=== PATIENT | male | born 1980 | race Caucasian/White ===

== ENCOUNTER 2017-03-21 10:47 | Outpatient (CLI) | payer OTHER ==
--- OUTSIDE RECORDS SUMMARY | 2017-03-21 10:51 | XMS | Clinical Summary ---
:1980 Author Organization [facility] Address [address] [place] [address] Phone Care Team Providers Name Role Phone , Primary Care Provider Unavailable Allergies Active Allergy Reactions Severity Noted Date Comments Amoxicillin Hives Low 09/18/2016 Penicillins Hives Low 09/18/2016 Current Medications Prescription Sig. Disp. Refills Start Date End Date Status prazosin (MINIPRESS) 5 Take 5 mg by Active MG capsule mouth nightly. omeprazole (PRILOSEC) Take 40 mg by Active 40 MG capsule mouth daily. HYDROcodone-acetaminop Take 1 tablet 12/25/2016 Active hen (NORCO 10-325) by mouth every 10-325 mg per tablet 4 (four) hours. cyclobenzaprine Take 10 mg by Active (FLEXERIL) 10 MG mouth 6 (six) tablet times daily. pregabalin (LYRICA) 75 Take 1 capsule 30 capsule 0 02/05/2017 02/05/2018 Active MG capsule (75 mg total) by mouth daily. Max Daily Amount: 75 mg ondansetron (ZOFRAN, Take 1 tablet 30 tablet 1 02/20/2017 02/20/2018 Active HYDROCHLORIDE,) 4 (4 mg total) MG tablet by mouth 3 (three) times daily as needed for Nausea. ciprofloxacin HCl Take 1 tablet 14 tablet 0 02/20/2017 02/27/2017 (CIPRO) 250 MG tablet (250 mg total) by mouth 2 (two) times daily for 7 days. clindamycin (CLEOCIN) Take 1 capsule 21 capsule 0 02/20/2017 02/27/2017 300 MG capsule (300 mg total) by mouth 3 (three) times daily for 7 days. Active Problems Not on file Encounters Date Type Specialty Care Team Description 02/20/2017 Office Visit Family Medicine Mary Baca Diarrhea, unspecified CLIF Eller type (Primary Dx);Body aches;Non-intractable vomiting with nausea, unspecified vomiting type;Exposure to water pollution 02/20/2017 Orders Only Family Medicine Mary Baca Neck pain (Primary Daphnie, CLIF Dx) 02/05/2017 Telephone Family Dee Abreu Neck Pain MD Dave 01/02/2017 Telephone Family Medicine Dee Pollack Urinary Difficulties MD Dave 12/26/2016 Hospital Encounter Mary Baca Preop examination CLIF Eller 12/26/2016 Office Visit Family Medicine Mary Baca Preop examination CLIF Eller (Primary Dx) 12/26/2016 Telephone Family Medicine Dee Pollack Results MD Dave 12/26/2016 Outside Orders Mary Baca Preop examination CLIF Eller (Primary Dx) 12/20/2016 Hospital Encounter Dee Pollack, left MD Dave side;Neck pain 12/20/2016 Hospital Encounter Radiology Dee Pollack, left MD Dave side;Neck pain 12/20/2016 Orders Only Family Dee Abreu Cervical spinal MD Dave stenosis (Primary Dx);Foraminal stenosis of cervical region 12/19/2016 Telephone Family Dee Abreu Advice Only MD Dave from Last 3 Months Immunizations Name Dates Previously Given Next Due Tdap 02/20/2017 Family History Medical History Relation Name Comments Cancer Father prostate Hyperlipidemia Father Hypertension Father Cancer Mother lung Heart disease Mother Hyperlipidemia Mother Hypertension Mother Migraines Mother Stroke Mother Relation Name Status Comments Father Alive Mother Social History Tobacco Use Types Packs/Day Years Used Date Never Smoker Smokeless Tobacco: Never Used Tobacco Cessation:Counseling Given: No Alcohol Use Drinks/Week oz/Week Comments Yes 6 Cans of beer 3.6 Sex Assigned at Date Recorded Not on file Last Filed Vital Signs Vital Sign Reading Time Taken Blood Pressure 124/80 02/20/2017 5:06 PM CDT Pulse 72 02/20/2017 5:06 PM CDT Temperature 36.1 C (97 F) 02/20/2017 5:06 PM CDT Respiratory Rate 18 02/20/2017 5:06 PM CDT Oxygen Saturation 99% 02/20/2017 5:06 PM CDT Inhaled Oxygen Concentration - - Weight 68.5 kg (151 lb) 02/20/2017 5:06 PM CDT Height 170.2 cm (5' 7") 02/20/2017 5:06 PM CDT Body Mass Index 23.65 02/20/2017 5:06 PM CDT Plan of Treatment Health Maintenance Due Date Last Done Comments INFLUENZA VACCINE 03/17/2017 Results POCT Influenza A/B (02/20/2017 5:57 PM) Component Value Ref Range Rapid Influenza A Ag, POC Negative for Influenza A Negative for Influenza A Rapid Influenza B Ag, POC Negative for Influenza B Negative for Influenza B Rapid Influenza Control Line Control Line Present?, POC PresentComment:lot# [id number] exp 01/27/2019 POCT urinalysis dipstick (12/26/2016 5:33 PM) Component Value Ref Range Glucose Urine, POC Negative Negative Bilirubin Urine, POC Negative Negative Ketones Urine, POC Negative Negative Specific [place] Urine, POC 1.010 SG Ratio 1.005 SG Ratio, 1.010 SG Ratio, 1.015 SG Ratio, 1.020 SG Ratio, 1.025 SG Ratio, 1.030 SG Ratio Blood Urine, POC Negative Negative pH Urine, POC 6.5 pH units 5.0 pH units, 6.0 pH units, 6.5 pH units, 7.0 pH units, 7.5 pH units, 8.0 pH units Protein Urine, POC Negative Negative Urobilinogen Urine, POC 0.2 mg/dL 0.2 mg/dL, 1 mg/dL Nitrite Urine, POC Negative Negative Leukocyte Esterase Urine, POC Negative Negative XR chest 2 views (12/26/2016 4:30 PM) Specimen Performing Laboratory GE RIS Narrative FINAL REPORT CHEST PA AND LATERAL History provided: Preoperative assessment Heart size normal. Lungs clear and vascularity normal. Fusion plate partially visualized in the lower cervical spine. IMPRESSION: Clear chest. Signed: Hoang South MD Report Verified Date/Time:12/26/2016 16:32:33 Reading Location: [facility] Diagnostic Imaging Reading Room - [facility] 1.310.12 Procedure Note Interface, External Ris In - 12/26/2016 4:35 PM CDT FINAL REPORT CHEST PA AND LATERAL History provided: Preoperative assessment Heart size normal. Lungs clear and vascularity normal. Fusion plate partially visualized in the lower cervical spine. IMPRESSION: Clear chest. Signed: Hoang South MD Report Verified Date/Time: 12/26/2016 16:32:33 Reading Location: [facility] Diagnostic Imaging Reading Room - [place] [id number] /PTT (12/26/2016 4:15 PM) Component Value Ref Range INR 1.0 0.8 - 1.2 Comment: Reference interval is for non-anticoagulated patients. Suggested INR therapeutic range for Vitamin K antagonist therapy: Standard Dose (moderate intensity therapeutic range): 2.0 - 3.0 Higher intensity therapeutic range 2.5 - 3.5 Prothrombin Time 10.2 9.1 - 12.0 sec aPTT 27 24 - 33 sec Comment: This test has not been validated for monitoring unfractionated heparin therapy. aPTT-based therapeutic ranges for unfractionated heparin therapy have not been established. For general guidelines on Heparin monitoring, refer to the [facility] Directory of Services. Specimen Performing Laboratory Blood [facility] Narrative Performed at:[address] [place], [place] [id number] Lug Loader: Juan Manuel Cartwright MD, Phone:[phone] CBC w/PLT Count Auto Differential (12/26/2016 4:15 PM) Component Value Ref Range WBC 7.0 3.4 - 10.8 x10E3/uL RBC 5.11 4.14 - 5.80 x10E6/uL Hemoglobin 17.0 12.6 - 17.7 g/dL Hematocrit 48.6 37.5 - 51.0 % MCV 95 79 - 97 fL MCH 33.3(H) 26.6 - 33.0 pg MCHC 35.0 31.5 - 35.7 g/dL RDW 12.6 12.3 - 15.4 % Platelets 235 150 - 379 x10E3/uL % Neutros 44 % % Lymphs 42 % % Monos 10 % % Eos 3 % % Baso 1 % # Neutros 3.1 1.4 - 7.0 x10E3/uL # Lymphs 3.0 0.7 - 3.1 x10E3/uL # Monos 0.7 0.1 - 0.9 x10E3/uL # Eos 0.2 0.0 - 0.4 x10E3/uL Baso (Absolute) 0.0 0.0 - 0.2 x10E3/uL % Immature Grans 0 % # Immature Grans 0.0 0.0 - 0.1 x10E3/uL Specimen Performing Laboratory Blood [facility] Narrative Performed at: [id number] Lug Loader: Juan Manuel Cartwright MD, Phone:[phone] Comprehensive metabolic panel (12/26/2016 4:15 PM) Component Value Ref Range Glucose, Serum 75 65 - 99 mg/dL BUN 7 6 - 20 mg/dL Creatinine, Serum 0.95 0.76 - 1.27 mg/dL eGFR If NonAfricn Am 102 >59 mL/min/1.73 eGFR If Africn Am 118 >59 mL/min/1.73 BUN/Creatinine Ratio 7(L) 9 - 20 Sodium, Serum 135 134 - 144 mmol/L Potassium, Serum 4.7 3.5 - 5.2 mmol/L Chloride, Serum 93(L) 96 - 106 mmol/L Carbon Dioxide, Total 27 18 - 29 mmol/L Calcium, Serum 9.8 8.7 - 10.2 mg/dL Protein, Total, Serum 7.5 6.0 - 8.5 g/dL Albumin, Serum 4.7 3.5 - 5.5 g/dL Globulin, Total 2.8 1.5 - 4.5 g/dL A/G Ratio 1.7 1.2 - 2.2 Bilirubin, Total 0.3 0.0 - 1.2 mg/dL Alkaline Phosphatase, S 64 39 - 117 IU/L AST (SGOT) 29 0 - 40 IU/L ALT (SGPT) 26 0 - 44 IU/L Specimen Performing Laboratory Blood [facility] Narrative Performed at: [id number] Lug Loader: Juan Manuel Cartwright MD, Phone:[phone] ECG 12 lead (12/26/2016 2:06 PM) Specimen Performing Laboratory GE MUSE Impressions Sinus rhythm Normal ECG XR spine cervical complete 4 views min (12/20/2016 4:19 PM) Specimen Performing Laboratory GE RIS Narrative FINAL REPORT CERVICAL SPINE SERIES History provided: Neck pain Cervical vertebrae are in normal alignment. Prior anterior fusion procedure at C6-7 with bone graft in place, poor definition of the disc space, and anterior metallic plate and screw device. Widely patent neural foramina. IMPRESSION: Anterior fusion at C6-7. No acute findings. Signed: Hoang South MD Report Verified Date/Time:12/20/2016 16:03:08 Reading Location: [facility] Diagnostic Imaging Reading Room - [facility] F1 1.310.12 Procedure Note Interface, External Ris In - 12/20/2016 4:20 PM CDT FINAL REPORT CERVICAL SPINE SERIES History provided: Neck pain Cervical vertebrae are in normal alignment. Prior anterior fusion procedure at C6-7 with bone graft [address], poor definition of the disc space, and anterior metallic plate and screw device. Widely patent neural foramina. IMPRESSION: Anterior fusion at C6-7. No acute findings. Signed: Hoang South MD Report Verified Date/Time: 12/20/2016 16:03:08 Reading Location: [facility] Diagnostic Imaging Reading Room - [facility] F1 1.310.12 cervical spine with and without contrast (12/20/2016 3:42 PM) Specimen Performing Laboratory [facility] Narrative FINAL REPORT MRI of the cervical spine without and with contrast INDICATION: severe neck pain, L arm sciatica TECHNIQUE: Multiplanar multisequence MRI examination of the cervical spine was performed without and with intravenous contrast. COMPARISON:Radiographs from the same date FINDINGS: There is straightening of the normal cervical lordosis without fracture or subluxation. The patient is status post C6-C7 ACDF with associated hardware artifact. No bony lesion is seen. No cord signal abnormality is detected. There is no abnormal enhancement. C2-C3, shallow left subarticular disc protrusion effacing the left lateral recess with associated mild bilateral facet arthropathy. There is moderate left foraminal stenosis. There is no central canal stenosis. C3-C4, broad-based disc bulge with superimposed left subarticular disc protrusion effacing the left lateral recess, with associated uncovertebral squaring and facet arthropathy, resulting in moderate central canal stenosis with mass effect on the left ventral cervical cord as well as moderate bilateral foraminal stenosis. C4-C5, mild disc bulge and mild facet arthropathy, resulting in mild to moderate bilateral foraminal stenosis and mild central canal stenosis. C5-C6, broad-based disc bulge with superimposed right subarticular disc protrusion effacing the right lateral recess with mass effect on the right ventral cervical cord which appears flattened. Associated uncovertebral squaring and mild facet arthropathy. These findings result in moderate to severe central canal stenosis, and severe right and moderate left foraminal stenosis. C6-C7, status post ACDF without residual central canal or foraminal stenosis. C7-T1, unremarkable. IMPRESSION: 1. Status post C6-C7 ACDF without residual central canal or foraminal stenosis. 2. Disc bulge with superimposed right subarticular disc protrusion at C5-C6 asymmetrically effacing the right lateral recess with mass effect on the right ventral cervical cord which appears flattened. Associated moderate to severe central canal stenosis, and severe right and moderate left foraminal stenosis. 3. Disc bulge with superimposed left subarticular disc protrusion at C3-C4 effacing the left lateral recess and causing moderate central canal and moderate bilateral foraminal stenosis. Signed: Jayce Lujan MD Report Verified Date/Time:12/20/2016 16:21:03 Reading Location: [address] Ortho Consult Reading Room Procedure Note Interface, External Ris In - 12/20/2016 4:23 PM CDT FINAL REPORT MRI of the cervical spine without and with contrast INDICATION: severe neck pain, L arm sciatica TECHNIQUE: Multiplanar multisequence MRI examination of the cervical spine was performed without and with intravenous contrast. COMPARISON: Radiographs from the same date FINDINGS: There is straightening of the normal cervical lordosis without fracture or subluxation. The patient is status post C6-C7 ACDF with associated hardware artifact. No bony lesion is seen. No cord signal abnormality is detected. There is no abnormal enhancement. C2-C3, shallow left subarticular disc protrusion effacing the left lateral recess with associated mild bilateral facet arthropathy. There is moderate left foraminal stenosis. There is no central canal stenosis. C3-C4, broad-based disc bulge with superimposed left subarticular disc protrusion effacing the left lateral recess, with associated uncovertebral squaring and facet arthropathy, resulting in moderate central canal stenosis with mass effect on the left ventral cervical cord as well as moderate bilateral foraminal stenosis. C4-C5, mild disc bulge and mild facet arthropathy, resulting in mild to moderate bilateral foraminal stenosis and mild central canal stenosis. C5-C6, broad-based disc bulge with superimposed right subarticular disc protrusion effacing the right lateral recess with mass effect on the right ventral cervical cord which appears flattened. Associated uncovertebral squaring and mild facet arthropathy. These findings result in moderate to severe central canal stenosis, and severe right and moderate left foraminal stenosis. C6-C7, status post ACDF without residual central canal or foraminal stenosis. C7-T1, unremarkable. IMPRESSION: 1. Status post C6-C7 ACDF without residual central canal or foraminal stenosis. 2. Disc bulge with superimposed right subarticular disc protrusion at C5-C6 asymmetrically effacing the right lateral recess with mass effect on the right ventral cervical cord which appears flattened. Associated moderate to severe central canal stenosis, and severe right and moderate left foraminal stenosis. 3. Disc bulge with superimposed left subarticular disc protrusion at C3-C4 effacing the left lateral recess and causing moderate central canal and moderate bilateral foraminal stenosis. Signed: Jayce Lujan MD Report Verified Date/Time: 12/20/2016 16:21:03 Reading Location: [facility] [id number] [facility] Reading Room from Last 3 Months
--- NOTE | 2017-03-21 12:55 | RAD ---
CERVICAL SPINE 3 VIEWS: HISTORY: Neck pain. Prior surgery. FINDINGS: Anterior fixation plate and screws are in place at the C6-7 level with interbody fusion material. V ertebral body height and alignment are maintained. No acute fracture or dislocation. Cervicothorac ic junction is intact. IMPRESSION: Anterior operative fixation of the lower cervical spine. POS: ARIANNA
== END 2017-03-21 10:48 | disposition home or self-care (01) ==
LOC: TBSIIMAG 10:47
PROVIDERS: ATTEND Neurological Surgery
DX: M54.12 Radiculopathy, cervical region (principal)
CPT/HCPCS: 72040

== ENCOUNTER 2017-05-01 05:40 | Day surgery (SDC) | payer OTHER ==
[2017-04-24 09:42] VITALS: BMI 25.0
--- NOTE | 2017-05-01 02:33 | HP ---
HISTORY OF PRESENT ILLNESS: Mr. Fraser is a 36-year-old man who presents for evaluation of sev ere left C6 radiculopathy. He has a history of prior ACDF at C6-C7 and over the last several months , he started to deal with profound left arm, neck and shoulder pain limiting his range of motion to the left significantly. He has not had this treated with any specific conservative therapies. He w ould rather pursue more definitive treatment at this time. He has imaging on disk that reveals russ re stenosis to the left at C5-C6, which is adjacent to his previous level and I think this fits very well with what his symptom presentation is at present. PAST MEDICAL HISTORY: Factor V Leiden deficiency. CURRENT MEDICATIONS: None. PAST SURGICAL HISTORY: L5-S1 disk replacement, additional lumbar surgery at C6-C7 ACDF and a hr business partner ior cervical decompression. PHYSICAL EXAMINATION: The patient is alert and oriented x3. Range of motion in the C-spine is very limited. He actually keeps his head tilt to the right to avoid increasing his pain. He has a posi tive Spurling's to the left upper extremity. Motor exam is essentially normal. He does have some m inor pain and weakness with some movements of the upper extremity on the left, otherwise free of any abnormality. Reflexes are equal and present bilaterally at the biceps tendon. ASSESSMENT: Cervical radiculopathy. PLAN: Dr. Kennedy met with the patient, reviewed imaging and ultimately advocated for a re-operation at C5-C6 ACDF with removal of hardware at C6-C7. He explained to the patient the risks, benefits, a nd alternatives to the procedure. The patient expressed understanding and would like to move forwar d with surgery as discussed. I do believe the patient is mentally competent and capable of making m edical decisions for himself and we will move forward with surgery as planned. This is Wilber Garcia PA-C dictating for Dr. Kennedy.
--- OUTSIDE RECORDS SUMMARY | 2017-05-01 05:42 | XMS | Clinical Summary ---
:1980 Author Organization [facility] Address [address] [place] [address] Phone Care Team Providers Name Role Phone , Primary Care Provider Unavailable Allergies Active Allergy Reactions Severity Noted Date Comments Amoxicillin Hives Low 09/18/2016 Penicillins Hives Low 09/18/2016 Current Medications Prescription Sig. Disp. Refills Start Date End Date Status prazosin (MINIPRESS) 5 Take 5 mg by Active MG capsule mouth nightly. omeprazole (PRILOSEC) Take 40 mg by Active 40 MG capsule mouth daily. HYDROcodone-acetaminoph Take 1 tablet 12/25/2016 Active en (NORCO 10-325) by mouth every 10-325 mg per tablet 4 (four) hours. cyclobenzaprine Take 10 mg by Active (FLEXERIL) 10 MG tablet mouth 6 (six) times daily. pregabalin (LYRICA) 75 Take 1 capsule 30 capsule 0 02/05/2017 02/05/2018 Active MG capsule (75 mg total) by mouth daily. Max Daily Amount: 75 mg ondansetron (ZOFRAN, Take 1 tablet 30 tablet 1 02/20/2017 02/20/2018 Active HYDROCHLORIDE,) 4 MG (4 mg total) tablet by mouth 3 (three) times daily as needed for Nausea. Active Problems Not on file Encounters Date Type Specialty Care Team Description 04/08/2017 Telephone Family Medicine Dee Pollack referral MD Dave 04/08/2017 Telephone Family Medicine Dee Pollack Advice Only MD Dave 03/26/2017 Orders Only Family Medicine Mary Baca Preop examination CLIF Eller (Primary Dx);Herniation of intervertebral disc at C5-C6 level 02/20/2017 Office Visit Family Medicine Mary Baca Diarrhea, unspecified CLIF Eller type (Primary Dx);Body aches;Non-intractable vomiting with nausea, unspecified vomiting type;Exposure to water pollution 02/20/2017 Orders Only Family Medicine Mary Baca Neck pain ( Primary Dx) CLIF Eller 02/05/2017 Telephone Family Medicine Dee Pollack Neck Pain MD Dave from Last 3 Months Immunizations [...] Control Line Control Line Present?, POC PresentComment:lot# [id number] exp 01/27/2019 from Last 3 Months
[2017-05-01] MEDS ORDERED: Bupivacaine/Epinephrine 0.25% 30 ML VIAL ONE (06:22)
[2017-05-01] MEDS ORDERED: Thrombin 5000 UNITS/5 ML VIAL ONE (06:22)
[2017-05-01] MEDS ORDERED: Fentanyl 250 MCG/5 ML VIAL ONE (06:30)
[2017-05-01] MEDS ORDERED: Lidocaine 1% w/Epinephrine 1:200K 30 ML VIAL ONE (06:36)
[2017-05-01] MEDS ORDERED: Levofloxacin 500 mg/D5W 100 ml Premix Bag ONE (06:39)
[2017-05-01] MEDS ORDERED: Clindamycin/D5W 900 mg/50 ml Premix Bag ONE ×2 (06:39→12:48)
[2017-05-01] MEDS ORDERED: PHENYLEPHRINE-NS 100 MCG/ML 10 ML SYRINGE ONE (07:09)
[2017-05-01] MEDS ORDERED: Lidocaine 1% PF 5 ML VIAL ONE (07:09)
[2017-05-01] MEDS ORDERED: Propofol 200 MG/20 ML VIAL ONE (07:09)
[2017-05-01] MEDS ORDERED: Ketorolac Tromethamine 30 MG/ML VIAL ONE (07:09)
[2017-05-01] MEDS ORDERED: Ondansetron HCl/PF 4 MG/2 ML Vial ONE (07:09)
[2017-05-01] MEDS ORDERED: Succinylcholine Chloride 20 MG/ML 10 ml SYRINGE FS ONE (07:09)
[2017-05-01] MEDS ORDERED: Dexamethasone 20 MG/5 ML VIAL ONE (07:09)
[2017-05-01] MEDS ORDERED: Fentanyl 100 MCG/2 ML VIAL ONE ×2 (08:58→09:20)
[2017-05-01] MEDS ORDERED: Tamsulosin HCl 0.4 MG CAP ONE (08:59)
[2017-05-01] MEDS ORDERED: Morphine 4 MG/ML VIAL ONE (09:28)
--- NOTE | 2017-05-01 10:21 | OP ---
DATE OF PROCEDURE: 05/01/2017 SURGEON: Lester Kennedy M.D. SUPERINTENDENT COLLIERY: ANGELICA Pride MANAGER INTEGRATED: Dr. Justin Chanel was responsible for the exposure. INDICATION: Pain. DIAGNOSIS: Cervical radiculopathy. PROCEDURE: Removal of anterior cervical plate, anterior cervical diskectomy and fusion C4-C5. ANESTHESIA: General. TECHNIQUE: The patient was brought into the operating room and placed under general anesthesia. He was placed on the table in a supine position. A transverse incision was planned over the lateral asp ect of the neck on the right. After prepping and draping and after an appropriate operative pause, t he incision was created. Dr. Justin Chanel was responsible for the exposure down to the prevertebral space. This will be dictated in a separate note. After identifying the plate that was located at C6 -7 it was removed in total. We then redirected our attention to the level above at C5-6 where an shyanne ulotomy was performed. All disk material as well as anterior and posterior osteophytes were removed. After complete decompression, a 6 mm lordotic PEEK cage packed with allograft and autograft materia l was placed within the interbody space. An anterior cervical plate was then fashioned to the front of the spine and secured with a total of 4 fixed screws. Midline and lateral structures were inspect ed and found to be free from significant trauma. The wound was irrigated. Hemostasis was maintained throughout. The wound was then closed in anatomic layers and a pressure dressing was applied. Ther e were no known procedural complications.
[2017-05-01] MEDS ORDERED: Acetaminophen/Codeine 30-300mg Tablet ONE (11:41)
--- NOTE | 2017-05-01 21:03 | OP ---
PREOPERATIVE DIAGNOSES: 1. Cervical myelopathy. 2. Need for anterior approach for anterior cervical disk fusion surgery. SURGEON: Dr. Neto Chanel CASE MANAGER SPECIALIST: Wilber Garcia PA-C ESTIMATED BLOOD LOSS: Less than 5 mL COMPLICATIONS: None. ANESTHESIA: GETA. PROCEDURE: The patient was taken to the operating room and placed supine on the table. General endo tracheal anesthesia was obtained by the Anesthesia staff. Using the direct laryngoscope, the larynge al electrodes were noted to be between the true vocal cords bilaterally. The tube was then secured i n the midline upper lip. A shoulder roll was placed and the patient was prepped and draped in standa rd surgical fashion. Following this, an incision was made overlying the previous incision on the rig ht horizontal portion of the neck. It was carried down through skin and subcutaneous tissue. Subpla tysmal flaps were elevated superiorly and inferiorly. Following this, the sternocleidomastoid muscle was identified and dissection was carried anterior to the fascia of the sternocleidomastoid. Retrac ting the great vessels laterally and the laryngeal structures along with recurrent laryngeal nerve me dially, adequate exposure was provided to the anterior vertebral bodies and the patient was then turn ed over to Dr. Nathen Kennedy for completion of the procedure.
== END 2017-05-01 13:30 | disposition home or self-care (01) ==
LOC: SDC 05:40
PROVIDERS: ATTEND Neurological Surgery
PROC: 0RG10A0 Fusion of Cervical Vertebral Joint with Interbody Fusion Device, Anterior Approach, Anterior Column, Open Approach (ICD-10-PCS; principal; 2017-05-01)
PROC: 2W55XYZ Removal of Other Device on Back (ICD-10-PCS; principal; 2017-05-01)
DX: M54.12 Radiculopathy, cervical region (principal); D68.51 Activated protein C resistance; Z79.899 Other long term (current) drug therapy; Z88.0 Allergy status to penicillin; Z98.1 Arthrodesis status; Z98.890 Other specified postprocedural states
CPT/HCPCS: 76001; 96374; C1713; J0131; J1100; J1885; J1956; J2001; J2270; J2405; J2704; J3010; J3490

== ENCOUNTER 2017-05-23 12:26 | Outpatient (CLI) | payer OTHER ==
--- NOTE | 2017-05-23 15:36 | CT ---
CERVICAL SPINE CT WITHOUT CONTRAST: DATE: 05/23/17. HISTORY: Pain, neck surgery 2 weeks ago. TECHNIQUE: Serial axial CT imaging is obtained at 2.5 mm intervals from the skull base through the lung apices w ithout contrast. Coronal and sagittal reformatted imaging obtained. FINDINGS: The imaged lung apices are unremarkable. The C1 ring is intact. The dens, occipital condyles, and C1-2 articulation appear within normal limi ts. Anterior diskectomy and fusion hardware is present at C5-6 with no evidence for hardware failure. Th ere is a disk device present at C6-7. There are screw tracks at C6 and C7, evidence of prior surgery . The hardware associated with these screws tracks has been removed. Evaluation for central canal and/or neural foraminal stenosis is limited on routine CT. C2-3: There is mild uncovertebral osteophyte formation and mild posterior left paracentral osteophyt e formation. No osseous cause of significant central canal or neural foraminal stenosis. C3-4: There is a disk protrusion in the central/left paracentral region which probably abuts the cor d and leads t significant central canal stenosis centrally and to the left of midline. There is post erior osteophyte formation as well, mild. There is uncovertebral osteophyte formation on the left. There is no osseous cause of significant neural foraminal stenosis. C4-5: Mild bilateral uncovertebral osteophyte formation. No osseous cause of significant central ca nal or neural foraminal stenosis. C5-6: There is posterior osteophyte formation. Mild bilateral uncovertebral osteophyte formation noted. There is osteophyte encroachment on bilater al neural foramina with mild bilateral neural foraminal stenosis suspected, right greater than left. C6-7: Mild left-sided uncovertebral osteophyte formation. No osseous cause of significant central c anal or neural foraminal stenosis. C7-T1: No osseous cause of significant central canal or neural foraminal stenosis. No acute fracture or dislocation. No worrisome lytic or blastic bone lesion. IMPRESSION: There are postoperative and degenerative changes seen within the cervical spine. There is a central/left paracentral disk protrusion at C3-4 with probable associated central canal stenosis . Evaluation for central canal and/or neural foraminal stenosis could be better performed via cervic al spine CT myelogram. POS: [facility]
== END 2017-05-23 12:27 | disposition home or self-care (01) ==
LOC: CT 12:26
PROVIDERS: ATTEND Neurological Surgery
DX: M47.22 Other spondylosis with radiculopathy, cervical region (principal); M50.11 Cervical disc disorder with radiculopathy, high cervical region; Z98.1 Arthrodesis status
CPT/HCPCS: 72125

== ENCOUNTER 2017-06-28 06:56 | Day surgery (SDC) | payer OTHER ==
[2017-06-27 10:06] VITALS: BMI 22.7
[~2017-06-28 06:56] MED LIST: FLU VACC QS2017-18 36 mo. & older 0.5 ML SYRINGE IM ONE
[2017-06-28 09:11] VITALS: BP 114/82; TEMP 98
--- NOTE | 2017-06-28 11:20 | CT ---
CT MYELOGRAM CERVICAL SPINE: DATE: 06/28/17. COMPARISON: None. HISTORY: Cervical radiculopathy, prior cervical spine surgery. TECHNIQUE: Following the intrathecal administration of iodinated contrast media, axial CT imaging is obtained at 2.5 mm intervals from the skull base through upper thoracic spine without IV contrast. Coronal and sagittal reformatted imaging obtained. FINDINGS: Anterior diskectomy and fusion hardware noted at the C5-6 level. There is an intervertebral disk dev ice at C5-6 and C6-7. Screw tracks are seen within the anterior aspect of C7 and C6 suggesting remov al of previously present hardware. The C1 ring, occipital condyles, dens, and C1-2 articulation appear normal. Atlantoaxial interspace, craniocervical junction, and cervicothoracic junction are unremarkable. C2-3: There is mild facet and uncovertebral osteophyte formation on the left with minimal left neura l foraminal stenosis. No central canal or right neural foraminal stenosis. C3-4: There is disk bulge with superimposed central/left paracentral disk protrusion effacing the ve ntral aspect of the thecal sac and abutting the ventral aspect of the cord with a mild degree of cord deformity and a mild to moderate degree of central canal stenosis in this region. Mild facet and un covertebral osteophyte formation noted bilaterally with a mild degree of bilateral neural foraminal s tenosis, right greater than left. C4-5: There is no central canal or neural foraminal stenosis. C5-6: There is a disk-osteophyte complex partially effacing the ventral thecal sac and causing a mil d degree of central canal stenosis. Mild bilateral uncovertebral osteophyte formation, right greater than left, with mild bilateral neura l foraminal stenosis, right greater than left. C6-7: There is no significant central canal or neural foraminal stenosis. C7-T1: There is no significant central canal or neural foraminal stenosis. No worrisome lytic or blastic bone lesion. No acute fracture or dislocation. IMPRESSION: Postoperative and degenerative changes are noted within the cervical spine. No significant disease i s at the C3-4 level as described above. POS: [facility]
--- NOTE | 2017-06-28 11:25 | RAD ---
CERVICAL MYELOGRAM: DATE: 06/28/17. HISTORY: Cervical radiculopathy. FINDINGS: Informed consent for cervical myelogram obtained prior to the procedure. Frontal and lateral workers' compensation hearings officer imaging of the lumbar spine demonstrates a metallic intervertebral disk dev ice at the L5-S1 level. There are postoperative clips in the pelvis. Lumbar spine vertebral body he ight and alignment appears within normal limits. Field Machinist imaging of the cervical spine demonstrates an terior diskectomy and fusion hardware at C5-6. At C6-7, there is an intervertebral disk device prese nt. No anterolisthesis or retrolisthesis noted in the cervical spine. The patient was then placed on the fluoroscopic table in the oblique prone position and the skin over lying the lumbar spine was prepped and draped in normal sterile fashion. The skin overlying the L3-4 level was anesthetized with 1% buffered Lidocaine. With intermittent fluoroscopic guidance, a 22-gauge spinal needle was advanced into the thecal sac an d removal of the stylette yields clear cerebrospinal fluid. Subsequently, approximately 10 cc of Iso [id number] injected, outlining nerve roots of the cauda equina and opacifying the thecal sac. The needl e was removed. Contrast media was then extended into the cervical region by tilting the patient's he ad down. The patient tolerated the procedure well. IMPRESSION: Postoperative changes within the lumbar spine and cervical spine. Successful cervical spine myelogra m with CT myelogram cervical spine to follow. POS: [facility]
== END 2017-06-28 09:30 | disposition home or self-care (01) ==
LOC: RAD 06:56
PROVIDERS: ATTEND Neurological Surgery
PROC: B01B1ZZ Fluoroscopy of Spinal Cord using Low Osmolar Contrast (ICD-10-PCS; principal; 2017-06-28)
DX: M54.12 Radiculopathy, cervical region (principal); D68.51 Activated protein C resistance; Z79.899 Other long term (current) drug therapy; Z88.0 Allergy status to penicillin; Z98.1 Arthrodesis status
CPT/HCPCS: 62302; 72126

== ENCOUNTER 2017-07-09 14:08 | Outpatient (CLI) | payer OTHER ==
--- NOTE | 2017-07-09 15:25 | RAD ---
FOUR VIEWS CERVICAL SPINE: Comparison: 03-21-17 History: Cervical radiculopathy. Previous cervical fusion hardware surgery. FINDINGS: Re-demonstration of anterior screws and plate with transvertebral artery screws at C5-6. Possible per ihardware lucency involving the transvertebral body screws at C5. There is a disc prosthesis at C5-6. The disc prosthesis appears to be beyond the anterior margin of C6. There is interval removal of the anterior fusion plate at C6-7. There is still a prosthesis at C6-7 level. There is no significant pr evertebral soft tissue swelling. Pre dental space is normal. On the AP and open mouth projection, no abnormality. Limited evaluation of the cervicothoracic junction on the swimmer's view. IMPRESSION: Cervical fusion hardware as above. Radiographically there appear to be perihardware lucency at the C5 level. Please refer to post myelogram CT for further detail. On that examination, there is no eviden ce of perihardware lucency. POS: [facility]
== END 2017-07-09 14:09 | disposition home or self-care (01) ==
LOC: TBSIIMAG 14:08
PROVIDERS: ATTEND Neurological Surgery
DX: M54.12 Radiculopathy, cervical region (principal); Z98.1 Arthrodesis status
CPT/HCPCS: 72040

== ENCOUNTER 2021-03-04 05:16 | Emergency (ER) | payer OTHER | END 2021-03-04 07:05 | disposition home or self-care (01) | LOC: ERS 05:16 | DX: S69.92XA Unspecified injury of left wrist, hand and finger(s), initial encounter (principal); Z86.711 Personal history of pulmonary embolism; Z79.899 Other long term (current) drug therapy; W22.8XXA Striking against or struck by other objects, initial encounter ==

== ENCOUNTER 2021-03-25 20:17 | Emergency (ER) | payer OTHER ==
[2021-03-25] MEDS ORDERED: Famotidine 20 MG TAB ONE (21:10)
[2021-03-25] MEDS ORDERED: Dexamethasone 4 MG TAB ONE (21:10)
== END 2021-03-25 20:40 | disposition home or self-care (01) ==
LOC: ERS 20:17
DX: R21 Rash and other nonspecific skin eruption (principal); E78.5 Hyperlipidemia, unspecified; E78.00 Pure hypercholesterolemia, unspecified; I10 Essential (primary) hypertension; G43.909 Migraine, unspecified, not intractable, without status migrainosus; Z86.73 Personal history of transient ischemic attack (TIA), and cerebral infarction without residual deficits; Z86.711 Personal history of pulmonary embolism; Z79.899 Other long term (current) drug therapy
CPT/HCPCS: 99283; J8540

== ENCOUNTER 2021-04-23 10:37 | Emergency (ER) | payer OTHER ==
[2021-04-23 11:13] LABS: #Lymphocytes 0.5 thou/uL (1.20-3.40); #Monocytes 0.4 thou/uL (0.11-0.59); #Neutrophils 3.3 thou/uL (1.40-6.50); %Eosinophils 0.7 % (0.0-10.0); %Lymphocytes 12.7 % (21.0-51.0); %Monocytes 8.5 % (0.0-10.0); %Neutrophils 78.2 % (42.0-75.0); Hemoglobin 14.7 g/dL (14.0-18.0); Mean Corpuscular HGB CONC 33.5 g/dL (32.0-36.0); Mean Corpuscular Hemoglobin 32.5 pg (27.0-31.0); Mean Corpuscular Volume 96.8 fL (78.0-98.0); Mean Platelet Volume 8.2 fL (7.4-10.4); Platelet Count 160 thou/uL (130-400); RBC Distribution Width 11.1 % (11.5-14.5); Red Blood Cell (RBC) Count 4.52 mill/uL (4.70-6.10); White Blood Cell (WBC) Count 4.2 thou/uL (4.8-10.8)
[2021-04-23] MEDS ORDERED: Ketorolac Tromethamine 30 MG/ML VIAL ONE (11:22)
[2021-04-23] MEDS ORDERED: Acetaminophen 500 MG TAB ONE (11:23)
[2021-04-23 11:33] LABS: ALT (SGPT) 63 U/L (8-55); AST (SGOT) 49 U/L (5-34); Albumin 3.8 g/dL (3.5-5.0); Alkaline Phosphatase 58 U/L (40-110); Anion Gap 15 mmol/L (10-20); BUN (Urea Nitrogen) 11 mg/dL (8.9-20.6); Bilirubin, Total 0.3 mg/dL (0.2-1.2); Calc. Creatinine Clearance 0 mL/min (70-130); Calcium 8.9 mg/dL (7.8-10.44); Carbon Dioxide 23 mmol/L (22-29); Chloride 103 mmol/L (98-107); Glucose 98 mg/dL (70-105); Magnesium 1.7 mg/dL (1.6-2.6); Potassium 4.3 mmol/L (3.5-5.1); Protein, Total 6.8 g/dL (6.0-8.3); Sodium 137 mmol/L (136-145)
== END 2021-04-23 13:21 | disposition home or self-care (01) ==
LOC: ERS 10:37
DX: U07.1 COVID-19 (principal); E78.5 Hyperlipidemia, unspecified; E78.00 Pure hypercholesterolemia, unspecified; I10 Essential (primary) hypertension; G43.909 Migraine, unspecified, not intractable, without status migrainosus; Z79.899 Other long term (current) drug therapy
CPT/HCPCS: 36415; 71045; 80053; 83735; 84484; 85025; 93005; 96374; J1885

== ENCOUNTER 2021-04-26 21:58 | Emergency (ER) | payer OTHER ==
[~2021-04-26 21:58] MED LIST changes: -FLU VACC QS2017-18 36 mo. & older 0.5 ML SYRINGE IM ONE; +Iopamidol-370 76% 500 ML 1 ML ONE
[2021-04-26] MEDS ORDERED: Ketorolac Tromethamine 30 MG/ML VIAL ONE (22:30)
[2021-04-26 22:45] LABS: #Lymphocytes 0.8 thou/uL (1.20-3.40); #Monocytes 0.8 thou/uL (0.11-0.59); #Neutrophils 4.8 thou/uL (1.40-6.50); %Basophils 0.4 % (0.0-1.0); %Eosinophils 0.6 % (0.0-10.0); %Lymphocytes 12.4 % (21.0-51.0); %Monocytes 11.7 % (0.0-10.0); %Neutrophils 74.9 % (42.0-75.0); Hemoglobin 15.1 g/dL (14.0-18.0); Mean Corpuscular HGB CONC 33.3 g/dL (32.0-36.0); Mean Corpuscular Hemoglobin 31.7 pg (27.0-31.0); Mean Corpuscular Volume 95.2 fL (78.0-98.0); Mean Platelet Volume 7.7 fL (7.4-10.4); Platelet Count 226 thou/uL (130-400); RBC Distribution Width 11.3 % (11.5-14.5); Red Blood Cell (RBC) Count 4.75 mill/uL (4.70-6.10); White Blood Cell (WBC) Count 6.4 thou/uL (4.8-10.8)
[2021-04-26 22:55] LABS: ALT (SGPT) 34 U/L (8-55); AST (SGOT) 34 U/L (5-34); Albumin 3.9 g/dL (3.5-5.0); Alkaline Phosphatase 53 U/L (40-110); Anion Gap 17 mmol/L (10-20); BUN (Urea Nitrogen) 10 mg/dL (8.9-20.6); Bilirubin, Total 0.5 mg/dL (0.2-1.2); Calc. Creatinine Clearance 0 mL/min (70-130); Calcium 8.8 mg/dL (7.8-10.44); Carbon Dioxide 23 mmol/L (22-29); Chloride 104 mmol/L (98-107); Globulin 3.3 g/dL (2.4-3.5); Glucose 95 mg/dL (70-105); Potassium 4.6 mmol/L (3.5-5.1); Protein, Total 7.2 g/dL (6.0-8.3); Sodium 139 mmol/L (136-145)
== END 2021-04-26 23:53 | disposition home or self-care (01) ==
LOC: ERS 21:58
DX: U07.1 COVID-19 (principal); J12.82 Pneumonia due to coronavirus disease 2019; E78.5 Hyperlipidemia, unspecified; E78.00 Pure hypercholesterolemia, unspecified; I10 Essential (primary) hypertension; Z86.73 Personal history of transient ischemic attack (TIA), and cerebral infarction without residual deficits; Z86.711 Personal history of pulmonary embolism; Z79.899 Other long term (current) drug therapy
CPT/HCPCS: 71045; 71275; 80053; 84484; 85025; 93005; 96374; J1885; Q9967

== ENCOUNTER 2022-02-08 19:07 | Emergency (ER) | payer MEDICARE, OTHER ==
[2022-02-08] MEDS ORDERED: Morphine 4 MG/ML VIAL ONE (19:46)
[2022-02-08] MEDS ORDERED: Ketorolac Tromethamine 30 MG/ML VIAL ONE (19:46)
== END 2022-02-08 22:50 | disposition home or self-care (01) ==
LOC: ERS 19:07
DX: M54.50 Low back pain, unspecified (principal); M54.12 Radiculopathy, cervical region; I10 Essential (primary) hypertension; E78.00 Pure hypercholesterolemia, unspecified; V43.62XA Car passenger injured in collision with other type car in traffic accident, initial encounter; Z86.73 Personal history of transient ischemic attack (TIA), and cerebral infarction without residual deficits; Z86.711 Personal history of pulmonary embolism; Z79.01 Long term (current) use of anticoagulants; Z79.899 Other long term (current) drug therapy
CPT/HCPCS: 70450; 72125; 72131; 72141; 74018; 96374; 96375; J1885; J2270

== ENCOUNTER 2022-08-17 11:43 | Emergency (ER) | payer OTHER ==
[2022-08-17] MEDS ORDERED: Ketorolac Tromethamine 30 MG/ML VIAL ONE (12:16)
== END 2022-08-17 13:26 | disposition home or self-care (01) ==
LOC: ERS 11:43
DX: S10.93XA Contusion of unspecified part of neck, initial encounter (principal); G89.29 Other chronic pain; M54.2 Cervicalgia; I10 Essential (primary) hypertension; E78.00 Pure hypercholesterolemia, unspecified; W01.0XXA Fall on same level from slipping, tripping and stumbling without subsequent striking against object, initial encounter; Z86.73 Personal history of transient ischemic attack (TIA), and cerebral infarction without residual deficits; Z86.711 Personal history of pulmonary embolism
CPT/HCPCS: 72125; 96372; J1885

== ENCOUNTER 2023-04-19 08:49 | Outpatient (CLI) | payer OTHER ==
[2023-04-19 10:55] LABS: Hematocrit 45.4 % (38.8-50.0); Hemoglobin 15.4 g/dL (13.5-17.5); Mean Corpuscular HGB CONC 33.9 g/dL (32.0-36.0); Mean Corpuscular Hemoglobin 32.2 pg (27.0-33.0); Mean Platelet Volume 10.4 fl (7.4-10.4); Platelet Count 287 10x3/uL (150-450); RBC Distribution Width 11.9 % (11.5-14.5); Red Blood Cell (RBC) Count 4.78 10x6/uL (4.32-5.72); White Blood Cell (WBC) Count 5.1 10x3/uL (3.5-10.5)
[2023-04-19 11:05] LABS: PTT 25.9 sec (22.0-33.0); Prothrombin Time 10.4 sec (9.5-12.1)
== END 2023-04-19 08:50 | disposition home or self-care (01) ==
LOC: LABBT 08:49
PROVIDERS: ATTEND Neurological Surgery
DX: Z01.818 Encounter for other preprocedural examination (principal); M54.12 Radiculopathy, cervical region
CPT/HCPCS: 85027; 85610; 85730; 93005; 93010

== ENCOUNTER 2023-04-19 09:00 | Inpatient (IN) | payer OTHER ==
[2023-04-19 09:05] VITALS: BMI 25.8
[2023-04-24] MEDS ORDERED: Thrombin 5000 UNITS/5 ML VIAL ONE (07:01)
[2023-04-24] MEDS ORDERED: Fentanyl 250 MCG/5 ML VIAL ONE ×2 (07:21→10:36)
[2023-04-24] MEDS ORDERED: Vancomycin 1 GM/200 ML (FROZEN) BAG ONE (07:37)
[2023-04-24] MEDS ORDERED: Acetaminophen 500 MG TAB ONE (07:37)
[2023-04-24] MEDS ORDERED: Rocuronium Bromide 10 MG/ML (10ML VIAL) ONE (09:42)
[2023-04-24] MEDS ORDERED: Glycopyrrolate 0.2 MG/ML 5 ML SYRINGE ONE (09:42)
[2023-04-24] MEDS ORDERED: Dexamethasone 20 MG/5 ML VIAL ONE (09:42)
[2023-04-24] MEDS ORDERED: Ondansetron PF 4 MG/2 ML Vial ONE (09:42)
[2023-04-24] MEDS ORDERED: NEOSTIGMINE 3 MG/3 ML SYR 3 MG/3 ML SYRINGE ONE (09:42)
[2023-04-24] MEDS ORDERED: diphenhydrAMINE 50 MG/ML VIAL ONE (11:24)
[2023-04-24] MEDS ORDERED: diphenhydrAMINE 50 MG/ML VIAL IVP SCH (11:30)
[2023-04-24] MEDS ORDERED: diphenhydrAMINE 25 MG CAP PO SCH (11:30)
[2023-04-24] MEDS ORDERED: Acetaminophen/Codeine 30-300mg Tablet PO PRN ×2 (14:21→14:22)
[2023-04-24] MEDS ORDERED: Acetaminophen 325 MG TAB PO PRN (14:21)
[2023-04-24] MEDS ORDERED: Acetaminophen 650 MG Suppository PR PRN (14:21)
[2023-04-24] MEDS ORDERED: Morphine 2 MG/ML VIAL SLOW IVP PRN (14:23)
[2023-04-24] MEDS ORDERED: diphenhydrAMINE 25 MG CAP PO PRN (14:25)
[2023-04-24] MEDS ORDERED: Cyclobenzaprine 10 MG TAB PO PRN (14:25)
[2023-04-24] MEDS ORDERED: diphenhydrAMINE 50 MG/ML VIAL IVP PRN (14:26)
[2023-04-24] MEDS ORDERED: Ondansetron PF 4 MG/2 ML Vial IVP PRN (14:26)
[2023-04-24] MEDS ORDERED: FLU VACC QS2023-24(6MOS UP)/PF 60 MCG/0.5 ML SYRINGE IM ONE (14:30)
[2023-04-24] MEDS ORDERED: Sodium Chloride 0.9% 1,000 ML IV SCH (14:30)
[2023-04-24] MEDS ORDERED: Tamsulosin HCl 0.4 MG CAP PO SCH (14:30)
[2023-04-24] MEDS: Morphine 4 MG/ML VIAL SLOW IVP PRN ×3 (14:34→17:21)
[2023-04-24 16:28] VITALS: BP 128/85; TEMP 98.7
[2023-04-25] MEDS ORDERED: Tamsulosin HCl 0.4 MG CAP PO SCH (06:00)
== END 2023-04-24 18:36 | disposition home or self-care (01) | DRG 473 ==
LOC: SURG A 04-24 06:15
PROVIDERS: ADMIT Neurological Surgery; ATTEND Neurological Surgery
PROC: 0RG10A0 Fusion of Cervical Vertebral Joint with Interbody Fusion Device, Anterior Approach, Anterior Column, Open Approach (ICD-10-PCS; principal; 2023-04-24)
DX: M48.02 Spinal stenosis, cervical region (principal); M54.12 Radiculopathy, cervical region; F41.9 Anxiety disorder, unspecified; R51.9 Headache, unspecified; F32.A Depression, unspecified; G89.4 Chronic pain syndrome; Z98.1 Arthrodesis status; Z98.890 Other specified postprocedural states; Z82.49 Family history of ischemic heart disease and other diseases of the circulatory system; Z80.9 Family history of malignant neoplasm, unspecified; Z88.0 Allergy status to penicillin; Z88.1 Allergy status to other antibiotic agents; Z88.8 Allergy status to other drugs, medicaments and biological substances
CPT/HCPCS: C1713; J1100; J1200; J2270; J2405; J3010; J3370-JW

== ENCOUNTER 2023-07-30 13:06 | Outpatient (CLI) | payer OTHER ==
[2023-07-30 14:14] LABS: Hematocrit 47.1 % (38.8-50.0); Hemoglobin 16.3 g/dL (13.5-17.5); Mean Corpuscular HGB CONC 34.6 g/dL (32.0-36.0); Mean Corpuscular Volume 92.4 fl (81.2-95.1); Mean Platelet Volume 10.4 fl (7.4-10.4); Platelet Count 287 10x3/uL (150-450)
[2023-07-30 14:27] LABS: PTT 26.3 sec (22.0-33.0); Prothrombin Time 10.3 sec (9.5-12.1)
[2023-07-30 14:31] LABS: Anion Gap 12 mmol/L (10-20); BUN (Urea Nitrogen) 12 mg/dL (8.9-20.6); Calc. Creatinine Clearance 0 mL/min (70-130); Calcium 9.7 mg/dL (7.8-10.44); Carbon Dioxide 27 mmol/L (22-29); Chloride 104 mmol/L (98-107); Estimated GFR 80; Glucose 92 mg/dL (70-105); Potassium 4.6 mmol/L (3.5-5.1); Sodium 138 mmol/L (136-145)
== END 2023-07-30 13:07 | disposition home or self-care (01) ==
LOC: LABBT 13:06
PROVIDERS: ATTEND Neurological Surgery
DX: Z01.818 Encounter for other preprocedural examination (principal); M54.16 Radiculopathy, lumbar region
CPT/HCPCS: 80048; 85027; 85610; 85730; 93005; 93010